=== PATIENT | male | born 1985 | race Two or more races ===

== ENCOUNTER 2020-12-01 08:25 | Outpatient (RCR) | payer MEDICAID, SELFPAY | END 2020-12-05 | LOC: EDBD → M PT 08:25 | PROVIDERS: ATTEND Physician Assistant | DX: S43.101A Unspecified dislocation of right acromioclavicular joint, initial encounter (principal); X58.XXXA Exposure to other specified factors, initial encounter; Y92.9 Unspecified place or not applicable; Y99.9 Unspecified external cause status ==

== ENCOUNTER 2020-12-16 08:44 | Outpatient (RCR) | payer MEDICAID, SELFPAY | END 2021-01-05 | LOC: M PT 08:44 | PROVIDERS: ATTEND Physician Assistant | DX: S43.101A Unspecified dislocation of right acromioclavicular joint, initial encounter (principal); X58.XXXA Exposure to other specified factors, initial encounter; Y92.9 Unspecified place or not applicable; Y99.9 Unspecified external cause status ==